=== PATIENT | female | born 1980 | race Caucasian/White ===

== ENCOUNTER → 2016-10-20 | Outpatient (CLI) | payer OTHER, BC ==
[~2016-10-20] MED LIST: AMOX875T2 PO; FLUC150T PO
--- NOTE | 2016-10-20 16:37 | Diagnostic Imaging Report ---
EXAMINATION: Left foot at 3:37 p.m. INDICATION: Foot pain. Three views were obtained. FINDINGS: There is no fracture, dislocation, or acute bony abnormality evident. The soft tissues are unremarkable. IMPRESSION: There is no evidence for an acute bony abnormality. Dictated by: Dictated on workstation # [id number]
== END ==
LOC: RAD 15:24
PROVIDERS: ATTEND Nurse Practitioner Family
DX: S90.32XA Contusion of left foot, initial encounter (principal); X58.XXXA Exposure to other specified factors, initial encounter